=== PATIENT | male | born 1955 ===

== ENCOUNTER 2017-12-19 09:07 | Day surgery (SDC) | payer SELFPAY ==
[2017-12-19] MEDS ORDERED: Lactated Ringer's 500 ML IV ONE (10:11)
[2017-12-19] MEDS ORDERED: Propofol 10 mg/ml Inj (20 ML) ONE (10:52)
[2017-12-19] MEDS ORDERED: Midazolam 2 MG/2 ML VIAL ONE (10:52)
[2017-12-19 12:01] VITALS: TEMP 97.4
[2017-12-19 12:13] VITALS: BP 105/54; PULSE 74; RESP 18; O2SAT 98
== END 2017-12-19 12:14 | disposition home or self-care (01) ==
LOC: H.ENDO 09:07
PROVIDERS: ATTEND Internal Medicine Gastroenterology
DX: Z12.11 Encounter for screening for malignant neoplasm of colon (principal); K64.8 Other hemorrhoids
CPT/HCPCS: 45378; J2250; J2704; J7120